=== PATIENT | female | born 1980 | race American Indian/Alaskan Native ===

== ENCOUNTER 2017-02-18 01:46 | Emergency (ER) | payer BC ==
[2017-02-18] MEDS ORDERED: REGLAN IV ONE (03:18)
[2017-02-18] MEDS ORDERED: BENADRYL IV ONE (03:19)
[2017-02-18] MEDS ORDERED: REGLAN ONE (03:21)
[2017-02-18 03:24] VITALS: BP 144/84
--- NOTE | 2017-02-18 04:16 | XRay Report ---
FINAL REPORT EXAM: XR ANKLE 2V LT HISTORY: lt ankle pain, and swelling after injury COMPARISONS: None. FINDINGS: AP and lateral views left ankle Mild periarticular soft tissue swelling. No fracture or gross malalignment. Os peroneum is noted. The 5th metatarsal bases incompletely visualized on lateral view. IMPRESSION: No fracture or gross malalignment involving the left ankle.
[2017-02-18 04:51] LABS: Basophils % (Auto) 0.9 % (0.0-1.8); Eosinophils % (Auto) 4.1 % (0.0-4.3); Hemoglobin 12.5 gm/dl (10.1-14.3); Mean Corpuscular HGB Conc 34 % (30-34); Mean Corpuscular Hemoglobin 33 pg (28-32); Mean Corpuscular Volume 96 fl (79-97); Platelet Count 218 K/mm3 (140-440); Red Blood Count 3.86 M/mm3 (3.65-5.03); Red Cell Distribution Width 13.7 % (13.2-15.2); White Blood Count 4.5 K/mm3 (4.5-11.0)
[2017-02-18 05:21] LABS: BUN/Creatinine Ratio 16; Blood Urea Nitrogen 8 mg/dL (7-17); Chloride 105.3 mmol/L (98-107); Potassium 3.8 mmol/L (3.6-5.0); Sodium 141 mmol/L (137-145)
[2017-02-18 05:35] LABS: Anion Gap 20 mmol/L; Calcium 8.2 mg/dL (8.4-10.2); Carbon Dioxide 20 mmol/L (22-30); Glucose 93 mg/dL (65-100)
--- NOTE | 2017-02-18 06:17 | Cat Scan Report ---
FINAL REPORT EXAM: CT HEAD/BRAIN WO CON HISTORY: headache, numbness in hands TECHNIQUE: CT imaging acquired through the head without intravenous contrast. Transaxial reformations are provided. PRIORS: None. FINDINGS: The ventricles, cisterns and sulci are normal. No intraparenchymal or extra-axial mass, hemorrhage, or mass effect. Lujan and white-matter differentiation is normal. Normal spherical shape of the globes. Paranasal sinuses and mastoid air cells are clear. No skull or facial fracture visualized. IMPRESSION: No acute intracranial abnormality.
--- NOTE | 2017-02-18 06:31 | Emergency Department Report ---
ED Headache HPI - General Chief Complaint: Headache Stated Complaint: MIGRAINE HEADACHE Time Seen by Provider: 02/18/17 06:27 - History of Present Illness Initial Comments: She complains of her typical migraine. She states she is has moved to this area. She states that she has been tried on Imitrex but that does not work for her. She took 2 Fioricet at home. She complains of headache involving the frontal and left parietal area. She states she has tingling in her fingers and sometimes blurred vision with her headaches but this is usual for her. She denies fever or chills. She was given medicines prior to my arrival which were only partially effective. She does have some photosensitivity. She denies any other complicating symptoms. Timing/Duration: 24 hours Quality: moderate Head Injury Location: frontal, parietal Recent Head Trauma: chronic headaches Associated Symptoms: denies symptoms Allergies/Adverse Reactions: Allergies No Known Allergies Allergy (Verified 02/18/17 03:21) Home Medications: Ambulatory Orders Ondansetron [Zofran Odt] 4 mg PO Q4HR PRN #7 tab.rapdis 02/18/17 Oxycodone HCl/Acetaminophen [Percocet 7.5/325 mg] 1 each PO Q6HR PRN #10 tablet 02/18/17 ED Review of Systems ROS: Stated complaint: MIGRAINE HEADACHE Other details as noted in HPI Constitutional: denies: chills, fever Eyes: denies: eye pain, eye discharge, vision change ENT: denies: ear pain, throat pain Respiratory: denies: cough, shortness of breath, wheezing Cardiovascular: denies: chest pain, palpitations Endocrine: no symptoms reported Gastrointestinal: denies: abdominal pain, nausea, diarrhea Genitourinary: denies: urgency, dysuria, discharge Musculoskeletal: denies: back pain, joint swelling, arthralgia Skin: denies: rash, lesions Neurological: headache, paresthesias. denies: weakness Psychiatric: denies: anxiety, depression Hematological/Lymphatic: denies: easy bleeding, easy bruising ED Past Medical Hx - Past Medical History Previous Medical History?: No - Surgical History Past Surgical History?: No - Social History Smoking Status: Never Smoker - Medications Home Medications: Home Medications Medication Instructions Recorded Confirmed Last Taken Type Ondansetron [Zofran Odt] 4 mg PO Q4HR PRN #7 tab.rapdis 02/18/17 Unknown Rx Oxycodone HCl/Acetaminophen 1 each PO Q6HR PRN #10 tablet 02/18/17 Unknown Rx [Percocet 7.5/325 mg] ED Physical Exam - General Limitations: No Limitations General appearance: alert, in no apparent distress - Head Head exam: Present: atraumatic, normocephalic - Eye Eye exam: Present: normal appearance, PERRL, EOMI. Absent: scleral icterus - ENT ENT exam: Present: mucous membranes moist - Neck Neck exam: Present: normal inspection, full ROM. Absent: tenderness, meningismus - Respiratory Respiratory exam: Present: normal lung sounds bilaterally. Absent: respiratory distress - Cardiovascular Cardiovascular Exam: Present: regular rate, normal rhythm. Absent: systolic murmur, diastolic murmur, rubs, gallop - GI/Abdominal GI/Abdominal exam: Present: soft, normal bowel sounds. Absent: distended, tenderness, guarding, rebound, rigid - Extremities Exam Extremities exam: Present: normal inspection - Back Exam Back exam: Present: normal inspection - Neurological Exam Neurological exam: Present: alert, oriented X3, CN II-XII intact, normal gait. Absent: motor sensory deficit - Psychiatric Psychiatric exam: Present: normal affect, normal mood - Skin Skin exam: Present: warm, dry, intact, normal color. Absent: rash ED Course Vital Signs 02/18/17 03:21 Temperature 98.7 F Pulse Rate 85 Respiratory 18 Rate Blood Pressure 144/84 O2 Sat by Pulse 100 Oximetry - Reevaluation(s) Reevaluation #1: Patient will be given additional analgesia. Her headache pattern is not atypical for her. She is appropriate for outpatient follow-up with a neurologist. 02/18/17 07:21 ED Medical Decision Making - Lab Data Result diagrams: 02/18/17 04:37 02/18/17 04:37 Laboratory Results - last 24 hr 02/18/17 02/18/17 02/18/17 04:37 04:37 04:37 WBC 4.5 RBC 3.86 Hgb 12.5 Hct 37.0 MCV 96 MCH 33 H MCHC 34 RDW 13.7 Plt Count 218 Lymph % (Auto) 37.3 H [place] % (Auto) 5.1 Eos % (Auto) 4.1 Baso % (Auto) 0.9 Lymph # 1.7 [place] # 0.2 Eos # 0.2 Baso # 0.0 Seg Neutrophils % 52.6 Seg Neutrophils # 2.4 Sodium 141 Potassium 3.8 Chloride 105.3 Carbon Dioxide 20 L Anion Gap 20 BUN 8 Creatinine 0.5 L Estimated GFR > 60 BUN/Creatinine Ratio 16 Glucose 93 Calcium 8.2 L HCG, Qual Negative - Radiology Data Radiology results: report reviewed (normal) Critical care attestation.: If time is entered above; I have spent that time in minutes in the direct care of this critically ill patient, excluding procedure time. ED Disposition Clinical Impression: Cephalalgia Qualifiers: Headache type: unspecified Headache chronicity pattern: episodic headache Intractability: not intractable Qualified Code(s): R51 - Headache Disposition: DC- TO HOME OR SELFCARE Is pt being admited?: No Does the pt Need Aspirin: No Condition: Stable Instructions: Acute Headache (ED) Additional Instructions: Follow-up with a local neurologist. I've also given the number for the [facility]. Prescriptions: Ondansetron [Zofran Odt] 4 mg PO Q4HR PRN #7 tab.rapdis PRN Reason: Nausea Oxycodone HCl/Acetaminophen [Percocet 7.5/325 mg] 1 each PO Q6HR PRN #10 tablet PRN Reason: Pain Referrals: JEAN MCKENNA MD [Primary Care Provider] - 3-5 Days ELIZABETH FERNÁNDEZ MD [Referring] - 3-5 Days [facility] [Provider Group] - 3-5 Days Time of Disposition: 07:23
== END 2017-02-18 07:40 | disposition home or self-care (01) ==
LOC: ED 01:46
DX: G43.909 Migraine, unspecified, not intractable, without status migrainosus (principal)
CPT/HCPCS: 36415; 70450; 73600; 80048; 84703; 85025; 96374; 96375; 99284; J1200; J2765